=== PATIENT | female | born 1995 | race Two or more races ===

== ENCOUNTER 2022-09-19 05:19 | Day surgery (SDC) | payer OTHER ==
[~2022-09-19] VITALS: Ht 149.9 cm; Wt 57.2 kg
[~2022-09-19 05:19] MED LIST: CLONAZEPAM1 MG PO; ZOLOFT100 MG PO
[2022-09-19] MEDS ORDERED: IBU800 MG PO (20:34)
[2022-09-19] MEDS ORDERED: PERCOCET 5-3251 EACH PO (20:34)
[2022-09-19] MEDS ORDERED: COLACE100 MG PO (20:34)
== END 2022-09-19 22:30 | disposition home or self-care (01) ==
LOC: CIR.AMB 05:19
PROVIDERS: ATTEND Student in an Organized Health Care Education/Training Program
DX: Z30.2 Encounter for sterilization (principal); Z86.16 Personal history of COVID-19; Z20.822 Contact with and (suspected) exposure to COVID-19